=== PATIENT | female | born 1955 | race Caucasian/White ===

== ENCOUNTER 2020-07-17 08:31 | Inpatient (IN) | payer OTHER ==
[~2020-07-17] VITALS: Ht 162.6 cm; Wt 85.3 kg
[2020-07-17] MEDS ORDERED: CHOL100044 PO (08:35)
[2020-07-17] MEDS ORDERED: VENL-68 PO (08:35)
[2020-07-17] MEDS ORDERED: BICT1TAB PO (08:35)
[2020-07-17 08:48] LABS: BASOPHILS % (AUTO) 0.3 % (0.0-2.0); EOSINOPHILS % (AUTO) 0.2 % (1.0-6.0); HEMOGLOBIN 15.3 g/dL (12.0-16.0); LYMPHOCYTES # (AUTO) 1.5 K/uL (1.0-4.8); LYMPHOCYTES % (AUTO) 22.3 % (22.0-44.0); MEAN CORPUSCULAR HEMOGLOBIN 33.5 pg (26.0-34.0); MEAN CORPUSCULAR VOLUME 99 fL (80-100); MONOCYTES # (AUTO) 0.5 K/uL (0.1-1.0); MONOCYTES % (AUTO) 6.8 % (2.0-9.0); NEUTROPHILS # (AUTO) 4.8 K/uL (1.8-7.7); NEUTROPHILS % (AUTO) 70.4 % (40.0-70.0); PLATELET COUNT (AUTO) 332 K/uL (150-450); RED BLOOD CELL COUNT(AUTO) 4.57 MIL/uL (4.00-5.20); RED CELL DISTRIBUTION WIDTH 13.4 % (11.5-14.5)
[2020-07-17 08:55] LABS: APPEARANCE,URINE CLEAR (CLEAR); BILIRUBIN,URINE NEGATIVE (NEGATIVE); GLUCOSE, URINE (UA) NEGATIVE (NEGATIVE); KETONES,URINE NEGATIVE (NEGATIVE); LEUKOCYTE ESTERASE ,URINE NEGATIVE (NEGATIVE); NITRATE,URINE NEGATIVE (NEGATIVE); OCCULT BLOOD,URINE NEGATIVE (NEGATIVE); PROTEIN,URINE NEGATIVE (NEGATIVE); UROBILINOGEN,URINE 0.2 mg/dL (<=1.0)
[2020-07-17 08:58] LABS: ANION GAP 11 mmol/L (8-16); CALCIUM, TOTAL 9.5 mg/dL (8.8-10.5); CARBON DIOXIDE 26 mmol/L (22-29); CHLORIDE 100 mmol/L (98-107); CREATININE 0.84 mg/dL (0.60-1.30); GLOMERULAR FILTR. RATE CALC > 60 mL/min (>60); GLUCOSE,RANDOM 135 mg/dL (70-110); POTASSIUM 3.8 mmol/L (3.5-5.1); SODIUM SERUM 137 mmol/L (136-145); UREA NITROGEN, BLOOD 10 mg/dL (7-18)
[2020-07-17 09:00] LABS: AMPHET/METH SCREEN,URINE NEGATIVE (NEGATIVE); BARBITURATE SCREEN, URINE NEGATIVE (NEGATIVE); BENZODIAZEPINES SCREEN,URINE NEGATIVE (NEGATIVE); CANNABINOID SCREEN,URINE NEGATIVE (NEGATIVE); COCAINE SCREEN,URINE NEGATIVE (NEGATIVE); METHADONE SCREEN, URINE NEGATIVE (NEGATIVE); OPIATE SCREEN,URINE NEGATIVE (NEGATIVE)
[2020-07-17 09:03] LABS: PROTHROMBIN TIME 10.9 SEC (9.4-11.6)
[2020-07-17 09:13] LABS: PHENCYCLIDINE SCREEN,URINE NEGATIVE (NEGATIVE); TROPONIN I < 0.02 ng/mL (0.00-0.05)
[2020-07-17 09:21] LABS: ALANINE AMINOTRANSFERASE 41 U/L (12-78); ALBUMIN 4.3 g/dL (3.4-5.0); ALKALINE PHOSPHATASE 100 U/L (46-116); ASPARTATE AMINOTRANSFERASE 25 U/L (15-37); BILIRUBIN,TOTAL 0.6 mg/dL (0.1-1.0); CREATINE KINASE, TOTAL ONLY 118 U/L (26-192); TOTAL PROTEIN, SERUM 8.8 g/dL (6.4-8.2)
[2020-07-17 09:25] LABS: ACETAMINOPHEN < 2 mcg/mL (10-30)
[2020-07-17 09:29] LABS: B-TYPE NATRIURETIC PEPTIDE 23 pg/mL (0-100)
[2020-07-17 09:32] LABS: AMMONIA < 10 umol/L (11-32)
[2020-07-17 10:06] LABS: COVID AG,FIA SOURCE NASAL SWAB
[2020-07-17] MEDS ORDERED: 0.9% SODIUM CHLORIDE 10 ML SYRINGE IVP PRN ×2 (11:30→12:00)
[2020-07-17] MEDS ORDERED: ACETAMINOPHEN 325 MG TABLET PO PRN ×2 (11:30→12:00)
[2020-07-17] MEDS ORDERED: AMMONIA 1 EA AMP IH ONE (11:54)
[2020-07-17] MEDS ORDERED: IPRATROPIUM BROMIDE 0.5 MG/2.5 ML NEB SOLUTION NEB PRN (12:00)
[2020-07-17] MEDS ORDERED: MAGNESIUM HYDROXIDE SUSPENSION 30 ML UDCUP PO PRN (12:00)
[2020-07-17] MEDS ORDERED: ONDANSETRON HCL 4 MG/2 ML VIAL IVP PRN (12:00)
[2020-07-17] MEDS ORDERED: ALBUTEROL SULFATE 2.5 MG/0.5 ML NEB SOLUTION NEB PRN (12:00)
[2020-07-17] MEDS ORDERED: BISACODYL 10 MG RECTAL RECTAL SUPPOSITORY PR PRN (12:00)
[2020-07-17 13:00] VITALS: BP 157/96
[2020-07-17] MEDS: SODIUM CHLORIDE 0.9% 1,000 ML IV SCH (13:52)
[2020-07-17 14:23] LABS: ABG A-A DIFF O2 32.2 mmHg (10-20.0); ABG BASE EXCESS 2.1 mmol/L (-2.0-3.0); ABG CARBOXYHEMOGLOBIN 0.8 % (0.0-1.5); ABG HCO3 26.4 mmol/L (22.0-26.0); ABG METHEMOGLOBIN 0.3 % (0.0-1.5); ABG OXYGEN CONTENT 20.3 mL/dL (15.0-23.0); ABG OXYGEN SATURATION 96.2 % (95.0-98.0); ABG OXYHEMOGLOBIN 95.1 % (94.0-100.0); ABG PCO2 36 mmHg (35-45); ABG PH 7.471 (7.35-7.450); ABG TOTAL HEMOGLOBIN 15.2 G/dL (12.0-18.0); PO2, ARTERIAL BG 74.6 mmHg (79.0-87.0); SOURCE, BLOOD GAS ARTERIAL; TEMPERATURE, FAHRENHEIT, BG 97.7 FAHREN (96.0-98.6)
[2020-07-17 14:24] LABS: O2 DEVICE,BLOOD GAS ROOM AIR (ROOM AIR); SITE, BLOOD GAS RT RADIAL
[2020-07-17 20:03] VITALS: BP 133/75
[2020-07-17] MEDS: FAMOTIDINE 20 MG TABLET PO SCH (20:07)
[2020-07-18 00:11] VITALS: BP 137/85
[2020-07-18] MEDS: SODIUM CHLORIDE 0.9% 1,000 ML IV SCH ×2 (03:48→20:10)
[2020-07-18 05:05] VITALS: BP 137/85
[2020-07-18 06:00] LABS: BASOPHILS % (AUTO) 0.8 % (0.0-2.0); EOSINOPHILS % (AUTO) 2.5 % (1.0-6.0); HEMATOCRIT 39.9 % (36-46); HEMOGLOBIN 13.5 g/dL (12.0-16.0); LYMPHOCYTES # (AUTO) 1.4 K/uL (1.0-4.8); LYMPHOCYTES % (AUTO) 28.1 % (22.0-44.0); MEAN CORPUSCULAR HEMOGLOBIN 33.7 pg (26.0-34.0); MEAN CORPUSCULAR HGB CONC 33.8 G/dL (31.0-37.0); MEAN CORPUSCULAR VOLUME 100 fL (80-100); MONOCYTES # (AUTO) 0.6 K/uL (0.1-1.0); MONOCYTES % (AUTO) 11.4 % (2.0-9.0); NEUTROPHILS % (AUTO) 57.2 % (40.0-70.0); PLATELET COUNT (AUTO) 309 K/uL (150-450); RED CELL DISTRIBUTION WIDTH 13.2 % (11.5-14.5)
[2020-07-18 06:18] LABS: ANION GAP 8 mmol/L (8-16); CALCIUM, TOTAL 8.8 mg/dL (8.8-10.5); CARBON DIOXIDE 28 mmol/L (22-29); CHLORIDE 102 mmol/L (98-107); CREATININE 0.87 mg/dL (0.60-1.30); FREE T4 (FREE THYROXINE) 1.04 ng/dL (0.76-1.46); GLOMERULAR FILTR. RATE CALC > 60 mL/min (>60); GLUCOSE,RANDOM 111 mg/dL (70-110); SODIUM SERUM 138 mmol/L (136-145); THYROID STIMULATING HORMONE 1.82 uIU/mL (0.36-3.74); UREA NITROGEN, BLOOD 14 mg/dL (7-18)
[2020-07-18 08:36] VITALS: BP 138/81
[2020-07-18] MEDS: FAMOTIDINE 20 MG TABLET PO SCH ×2 (08:47→20:10)
[2020-07-18] MEDS: BICTEGRAV/EMTRICIT/TENOFOV ALA 50-200-25 MG TABLET PO SCH (08:47)
[2020-07-18] MEDS: CHOLECALCIFEROL (VIT D3) 1,000 UNITS [25 MCG] TABLET PO SCH (08:47)
[2020-07-18] MEDS ORDERED: VENLAFAXINE HCL 150 MG ER CAPSULE PO SCH (09:00)
[2020-07-18 19:48] VITALS: BP 124/69
[2020-07-19 00:34] VITALS: BP 121/74
[2020-07-19 04:44] VITALS: BP 119/76
[2020-07-19 05:40] LABS: BASOPHILS % (AUTO) 0.9 % (0.0-2.0); EOSINOPHILS % (AUTO) 3.1 % (1.0-6.0); HEMATOCRIT 39.2 % (36-46); HEMOGLOBIN 13.4 g/dL (12.0-16.0); LYMPHOCYTES # (AUTO) 1.5 K/uL (1.0-4.8); LYMPHOCYTES % (AUTO) 31.9 % (22.0-44.0); MEAN CORPUSCULAR HEMOGLOBIN 34.1 pg (26.0-34.0); MEAN CORPUSCULAR HGB CONC 34.2 G/dL (31.0-37.0); MEAN CORPUSCULAR VOLUME 100 fL (80-100); MONOCYTES # (AUTO) 0.5 K/uL (0.1-1.0); MONOCYTES % (AUTO) 11.3 % (2.0-9.0); NEUTROPHILS # (AUTO) 2.5 K/uL (1.8-7.7); NEUTROPHILS % (AUTO) 52.8 % (40.0-70.0); PLATELET COUNT (AUTO) 278 K/uL (150-450); RED BLOOD CELL COUNT(AUTO) 3.93 MIL/uL (4.00-5.20); RED CELL DISTRIBUTION WIDTH 13.3 % (11.5-14.5)
[2020-07-19 05:54] LABS: ALBUMIN 3.4 g/dL (3.4-5.0); BILIRUBIN,TOTAL 0.9 mg/dL (0.1-1.0); CALCIUM, TOTAL 8.8 mg/dL (8.8-10.5); CREATININE 0.98 mg/dL (0.60-1.30); POTASSIUM 3.4 mmol/L (3.5-5.1); TOTAL PROTEIN, SERUM 7.3 g/dL (6.4-8.2)
[2020-07-19 07:48] VITALS: BP 135/77
[2020-07-19] MEDS: SODIUM CHLORIDE 0.9% 1,000 ML IV SCH (09:39)
[2020-07-19] MEDS ORDERED: LIDOCAINE/PF 1% 5 ML VIAL ONE (10:33)
[2020-07-19] MEDS ORDERED: IOHEXOL 180 MG/ML 20 ML VIAL ONE (10:47)
[2020-07-19 14:17] LABS: APPEARANCE,CSF HAZY (CLEAR); COLOR,CSF COLORLESS (COLORLESS); CSF TOTAL VOLUME 16.9 mL; CSF TUBE NUMBER 1; LYMPHOCYTES1,CSF 0 %; MONOCYTES1,CSF 0 %; NEUTROPHILS1,CSF 100 %
[2020-07-19 14:18] LABS: APPEARANCE2,CSF CLEAR (CLEAR); COLOR2,CSF COLORLESS (COLORLESS); CSF 2ND TUBE NUMBER 4; LYMPHOCYTES2,CSF 0 %; MONOCYTES2,CSF 0 %; NEUTROPHILS2,CSF 0 %
[2020-07-19 14:42] LABS: TOTAL PROTEIN, CSF 60 mg/dL (15-45)
[2020-07-19] MEDS: CHOLECALCIFEROL (VIT D3) 1,000 UNITS [25 MCG] TABLET PO SCH (15:04)
[2020-07-19] MEDS: RisperiDONE 1 MG TABLET PO SCH ×2 (15:04→20:27)
[2020-07-19] MEDS: FAMOTIDINE 20 MG TABLET PO SCH ×2 (15:04→20:27)
[2020-07-19] MEDS: BICTEGRAV/EMTRICIT/TENOFOV ALA 50-200-25 MG TABLET PO SCH (15:04)
[2020-07-19] MEDS: LORazepam 1 MG TABLET PO SCH ×2 (15:04→20:27)
[2020-07-19] MEDS ORDERED: POTASSIUM CHLORIDE 10% 40 MEQ/30 ML LIQUID UDCUP PO ONE (17:45)
[2020-07-19 20:00] VITALS: BP 122/76
[2020-07-20] MEDS: SODIUM CHLORIDE 0.9% 1,000 ML IV SCH ×2 (00:01→11:55)
[2020-07-20 04:55] VITALS: BP 95/56
[2020-07-20 06:19] LABS: BASOPHILS % (AUTO) 0.8 % (0.0-2.0); EOSINOPHILS % (AUTO) 3.9 % (1.0-6.0); HEMATOCRIT 39.7 % (36-46); HEMOGLOBIN 13.5 g/dL (12.0-16.0); LYMPHOCYTES # (AUTO) 1.1 K/uL (1.0-4.8); LYMPHOCYTES % (AUTO) 36.7 % (22.0-44.0); MEAN CORPUSCULAR HEMOGLOBIN 33.9 pg (26.0-34.0); MEAN CORPUSCULAR HGB CONC 34.1 G/dL (31.0-37.0); MEAN CORPUSCULAR VOLUME 100 fL (80-100); MONOCYTES # (AUTO) 0.3 K/uL (0.1-1.0); MONOCYTES % (AUTO) 11.2 % (2.0-9.0); NEUTROPHILS # (AUTO) 1.4 K/uL (1.8-7.7); NEUTROPHILS % (AUTO) 47.4 % (40.0-70.0); PLATELET COUNT (AUTO) 255 K/uL (150-450); RED BLOOD CELL COUNT(AUTO) 3.99 MIL/uL (4.00-5.20); RED CELL DISTRIBUTION WIDTH 13.3 % (11.5-14.5)
[2020-07-20 06:28] LABS: ANION GAP 8 mmol/L (8-16); CALCIUM, TOTAL 8.5 mg/dL (8.8-10.5); CARBON DIOXIDE 26 mmol/L (22-29); CHLORIDE 107 mmol/L (98-107); CREATININE 0.77 mg/dL (0.60-1.30); GLOMERULAR FILTR. RATE CALC > 60 mL/min (>60); GLUCOSE,RANDOM 96 mg/dL (70-110); POTASSIUM 3.5 mmol/L (3.5-5.1); SODIUM SERUM 141 mmol/L (136-145); UREA NITROGEN, BLOOD 14 mg/dL (7-18)
[2020-07-20 08:09] VITALS: BP 118/73
[2020-07-20] MEDS: LORazepam 1 MG TABLET PO SCH ×2 (08:38→22:05)
[2020-07-20] MEDS: RisperiDONE 1 MG TABLET PO SCH ×2 (08:38→22:05)
[2020-07-20] MEDS: BICTEGRAV/EMTRICIT/TENOFOV ALA 50-200-25 MG TABLET PO SCH (08:38)
[2020-07-20] MEDS: FAMOTIDINE 20 MG TABLET PO SCH ×2 (08:38→22:05)
[2020-07-20] MEDS: CHOLECALCIFEROL (VIT D3) 1,000 UNITS [25 MCG] TABLET PO SCH (08:38)
[2020-07-20 20:16] VITALS: BP 104/66
[2020-07-20] MEDS ORDERED: HYDROCODONE/ACETAMINOPHEN 5-325 MG TABLET PO PRN (20:30)
[2020-07-21 04:18] VITALS: BP 100/54
[2020-07-21] MEDS: SODIUM CHLORIDE 0.9% 1,000 ML IV SCH ×2 (05:40→18:43)
[2020-07-21 06:19] LABS: MAGNESIUM 1.9 mg/dL (1.80-2.40)
[2020-07-21 08:00] VITALS: BP 96/53
[2020-07-21] MEDS: RisperiDONE 1 MG TABLET PO SCH ×2 (08:29→20:59)
[2020-07-21] MEDS: LORazepam 1 MG TABLET PO SCH ×2 (08:29→20:59)
[2020-07-21] MEDS: BICTEGRAV/EMTRICIT/TENOFOV ALA 50-200-25 MG TABLET PO SCH (08:29)
[2020-07-21] MEDS: FAMOTIDINE 20 MG TABLET PO SCH ×2 (08:29→20:59)
[2020-07-21] MEDS: CHOLECALCIFEROL (VIT D3) 1,000 UNITS [25 MCG] TABLET PO SCH (08:29)
[2020-07-21 20:50] VITALS: BP 113/69
[2020-07-22 05:28] VITALS: BP 100/69
[2020-07-22 07:25] VITALS: BP 101/61
[2020-07-22] MEDS: CHOLECALCIFEROL (VIT D3) 1,000 UNITS [25 MCG] TABLET PO SCH (08:01)
[2020-07-22] MEDS: BICTEGRAV/EMTRICIT/TENOFOV ALA 50-200-25 MG TABLET PO SCH (08:01)
[2020-07-22] MEDS: FAMOTIDINE 20 MG TABLET PO SCH ×2 (08:01→20:29)
[2020-07-22] MEDS: LORazepam 1 MG TABLET PO SCH ×2 (08:01→20:29)
[2020-07-22] MEDS: RisperiDONE 1 MG TABLET PO SCH ×2 (08:01→20:29)
[2020-07-22] MEDS: SODIUM CHLORIDE 0.9% 1,000 ML IV SCH (08:02)
[2020-07-22] MEDS ORDERED: MAG HYDROX/AL HYDROX/SIMETH 30 ML SUSP UDCUP PO ONE (14:00)
[2020-07-23] MEDS ORDERED: MULTIVITAMINS WITH MINERALS, THERAPEUTIC TABLET PO SCH (09:00)
== END 2020-07-22 21:55 | disposition left against medical advice (07) | DRG 72 ==
LOC: EMS 08:31 → 5S 11:47 → 6S 13:20
PROVIDERS: ADMIT Internal Medicine; ATTEND Internal Medicine
DX: G93.40 Encephalopathy, unspecified (principal); Z79.899 Other long term (current) drug therapy; F32.9 Major depressive disorder, single episode, unspecified; F41.9 Anxiety disorder, unspecified; Z81.8 Family history of other mental and behavioral disorders; F29 Unspecified psychosis not due to a substance or known physiological condition; Z21 Asymptomatic human immunodeficiency virus [HIV] infection status; Z20.822 Contact with and (suspected) exposure to COVID-19
CPT/HCPCS: 36600; 62270; 70450; 70551; 71045; 80048; 80053; 81003; 82140; 82550; 82805; 83735; 83880; 84100; 84145; 84157; 84439; 84443; 84484; 85025; 85610; 85730; 86694; 87070; 87205; 87426; 88312; 89051; 92526; 92610; 93005; 99285; A9575; G0480; G0481; J2001; J7030; Q9965; 36415-L1; 36415-TC